=== PATIENT | male | born 1995 | race Caucasian/White ===

== ENCOUNTER 2018-11-02 11:24 | Emergency (ER) | payer SELFPAY ==
[~2018-11-02] VITALS: Ht 182.8 cm; Wt 81.6 kg
[~2018-11-02 11:24] MED LIST: NEXIUM40 MG PO; VITAMIN
[2018-11-02 12:34] LABS: BASO % 0.4 % (0.0-1.0); EOS # 0.8 10*3/uL (0.0-0.4); EOS % 10.9 % (1.0-4.0); HEMOGLOBIN 14.9 g/dl (14.0-18.0); LYMPH # 1.3 10*3/uL (1.3-4.4); LYMPH % 17.9 % (27.0-41.0); MEAN CELL VOLUME 87.1 fl (80.0-94.0); MEAN CORPUSCULAR HGB 29.5 pg (27.0-31.0); MEAN CORPUSCULAR HGB CONC 33.9 g/dl (33.0-37.0); MEAN PLATELET VOLUME 10.6 fl (9.6-12.3); MONO # 0.6 10*3/uL (0.1-1.0); MONO % 8.8 % (3.0-9.0); NEUT # 4.3 10*3/uL (2.3-7.9); NEUT % 61.7 % (47.0-73.0); PLATELET COUNT AUTOMATED 224 10*3/uL (130-400); RED BLOOD COUNT 5.05 10*6/uL (4.50-5.90); RED CELL DISTRI WIDTH 12.2 % (0-14.5)
[2018-11-02 12:49] LABS: ALBUMIN 1.5 gm/dl (3.1-4.5); ALKALINE PHOSPHATASE 60 U/L (45-117); BUN 5 mg/dl (7-24); CHLORIDE 108 mmol/L (98-107); CREATININE 0.81 mg/dL (0.70-1.30); POTASSIUM 4.1 mmol/L (3.5-5.1); SGOT/AST 22 IU/L (3-35); SGPT/ALT 25 U/L (12-78); SODIUM 144 mmol/L (136-145)
[2018-11-02] MEDS ORDERED: AUGMENTIN 875-875 MG PO (13:35)
[2018-11-02] MEDS ORDERED: IBU800 MG PO (13:35)
== END 2018-11-02 14:01 | disposition left against medical advice (07) ==
LOC: ED 11:24
PROVIDERS: Nurse Practitioner Family
DX: K12.2 Cellulitis and abscess of mouth (principal); Z79.899 Other long term (current) drug therapy

== ENCOUNTER 2018-12-05 13:43 | Emergency (ER) | payer SELFPAY ==
[~2018-12-05] VITALS: Ht 182.8 cm; Wt 83.9 kg
[~2018-12-05 13:43] MED LIST changes: +AUGMENTIN 875-875 MG PO; +IBU800 MG PO
== END 2018-12-05 15:39 | disposition home or self-care (01) ==
LOC: ED 13:43
DX: R60.0 Localized edema (principal); Z79.2 Long term (current) use of antibiotics; Z79.899 Other long term (current) drug therapy

== ENCOUNTER → 2019-03-29 | Outpatient (CLI) | payer SELFPAY ==
[~2019-03-29] MED LIST changes: +AMLODIPINE BESYL5 MG PO; +BENADRYL ALLERG25 M5 PO; +FUROSEMIDE40 MG PO; +K-TAB20 MEQ PO; +KLOR-CON M2020 ME1 PO; +LASIX80 MG PO; +LISINOPRIL20 MG PO; +NATURE'S BLEND F1 MG PO; +NORVASC5 MG PO; +PRINIVIL10 MG PO; +VITAMIN D32000 UNI1 PO; +Zestril,Prinivi40 MG PO
[2019-03-29 13:31] LABS: ALBUMIN 0.7 gm/dl (3.1-4.5); CREATININE 2.88 mg/dL (0.70-1.30); PHOSPHOROUS 3.4 mg/dL (2.5-4.9); POTASSIUM 4.7 mmol/L (3.5-5.1)
== END | disposition home or self-care (01) ==
LOC: LAB 12:45
PROVIDERS: Family Medicine
DX: R80.9 Proteinuria, unspecified (principal)

== ENCOUNTER → 2019-04-01 | Outpatient (CLI) | payer SELFPAY | END | disposition home or self-care (01) | LOC: LAB 20:45 | DX: R77.9 Abnormality of plasma protein, unspecified (principal) ==

== ENCOUNTER → 2019-04-05 | Outpatient (CLI) | payer SELFPAY | END | disposition home or self-care (01) | LOC: LAB 12:46 | PROVIDERS: Family Medicine | DX: N18.3 Chronic kidney disease, stage 3 (moderate) (principal) ==

== ENCOUNTER 2019-04-11 20:42 | Inpatient (IN) | payer SELFPAY ==
[~2019-04-11] VITALS: Ht 182.8 cm; Wt 98.0 kg
--- NOTE | ~2019-04-11 | WRIGHTHP ---
[place], [place] PATIENT HISTORY AND PHYSICAL EXAM NAME: [id number] UNIT #: [id number] ROOM: 518 DOCTOR: ESTRELLITA OHARA MD BIRTHDATE: [birth year] DOS: 04/11/2019 HISTORY OF PRESENT ILLNESS: The patient is 23 years old. The patient comes in with increasing shortness of breath. He says he is unable to even lie back flat because of increased abdominal distention and increased shortness of breath. He had seen his PCP recently and was told that he may have kidney disease from a recent strep infection. The patient states that he has strep infection about 6 months ago, it lasted for almost a month. He did not really take care of it, finally decided to go on antibiotics, but thinks that the medicine may not work. For the last 2-3 months, he has also noticed increasing leg swelling, abdominal swelling and increasing shortness of breath. Finally, he had a renal ultrasound and a 24-hour urine study as per the patient. We do not have the results of it and he was advised to see a bottom stop attacher. Appointment was made with Dr. Patel by his PCP, but yesterday his shortness of breath was significant, so he decided to come into the Emergency Room. He denies having any chest pains or palpitations, does not have any fever or chills, does not have any abdominal pain. He does not have any nausea or emesis. PAST MEDICAL HISTORY: Significant for: 1. Recent streptococcal pharyngitis. 2. Post-streptococcal glomerulonephritis. 3. Ascites. 4. Anasarca. MEDICATIONS: The patient is on just Prilosec. SOCIAL HISTORY: Nonsmoker, does not use any alcohol. Lives at home. He is a loja. He immigrated from [facility] at the age of 6. His parents are both healthy they do not have any medical problems. PHYSICAL EXAMINATION: GENERAL: He is awake and alert and oriented, pleasant, in mild respiratory distress, especially when he lies back flat. VITAL SIGNS: Graphic trend shows a pressure 148/90, pulse 119, respirations 20, temperature 98.5. LUNGS: Diminished breath sounds. HEART: Regular, tachycardic, heart rate in the 90s to low 100s. ABDOMEN: Obese, distended. Bowel sounds present. EXTREMITIES: About 2+ pitting edema all the way to the thighs. ASSESSMENT AND PLAN: 1. Anasarca with ascites. The patient was given albumin and Lasix combination and Dr. Camargo was consulted for possible paracentesis. A CT of the abdomen and pelvis will be ordered to see the extent of pleural effusions and may require thoracentesis soon. 2. Acute post-streptococcal glomerulonephritis with hematuria, hypertension. The patient is ordered an ASO level, 24-hour urine collection for protein and creatinine clearance and a consultation with Dr. Patel obtained. Renal ultrasound is also pending. 3. Protein-calorie malnutrition, severe. Encouraged to eat better high protein [place], [place] PATIENT HISTORY AND PHYSICAL EXAM NAME: [facility] [id number] UNIT #: [id number] ROOM: 8 DOCTOR: ESTRELLITA OHARA MD BIRTHDATE: [birth year] foods. 4. Benign hypertension, poorly controlled. Add hydralazine. Avoid nephrotoxic medications. ESTRELLITA OHARA MD CM:HISPHYS:PATIENT HISTORY AND PHYSICAL EXAMINATION [phone] ESTRELLITA OHARA MD 04/12/19 1453 interface
--- NOTE | ~2019-04-11 | PR ---
[place], [place] PROGRESS NOTE NAME: IFEANYI DUARTE UNIT #: [id number] ROOM: 518 DOCTOR: LORETO SHELTON MD,RONY BIRTHDATE: [birth year] DOS: 04/14/2019 PULMONARY PROGRESS NOTE SUBJECTIVE: The patient was seen and examined on 04/14/2019, has been noted without any acute distress. Shortness of breath occurs with exertion. Denies symptoms of chest pain, coughing or sputum expectoration or hemoptysis. Denies pain of the lower extremity, extremity edema has been improving. He was noted with periorbital edema, which were noted partially decreased. Remaining systems were reviewed. They were noted all negative. OBJECTIVE: GENERAL: The patient is comfortably sitting on the bed this morning of assessment. VITAL SIGNS: Recorded normal temperature, respiratory rate 18, heart rate 110, blood pressure 142/84. Pulse oxygen saturation on room air at rest was 99% saturation. HEENT: Examination shows head was atraumatic. Eyes nonicterus. Periorbital edema. CARDIOVASCULAR: S1, S2 audible. LUNGS: The patient noted decreased breath, lower portion of the lung. There were no crackles. ABDOMEN: Soft, nontender. Bowel sounds present. EXTREMITIES: No acute change. IMPRESSION: Stable respiratory status was noted at the present time for this patient with bilateral pleural fluid, nephrotic syndrome, anasarca picture with bilateral pleural fluid. PLAN OF TREATMENT: Ultrasound of the chest was performed today with the intention of thoracentesis. Fluid appeared to be noted as small and possibly moderate at this time, appeared to be decreased as compared with the assessment and comparison with CT scan of the chest. HIV testing was noted as negative. Hepatitis panel and the complement level as well as rheumatoid factor were all noted negative. IMPRESSION: 1. Acute changes, which is resolving with anasarca. 2. Status post paracentesis 2 days ago. 3. Resolving pleural fluid related to the current kidney problems. PLAN OF MANAGEMENT: Decision was made not to do thoracentesis at this time because of the fluid started resolving and gradually improving with conservative therapy. From the pulmonary standpoint, the patient could be discharged home. The assessment and management discussed with Dr. Dilma Telles on the phone. [place], [place] PROGRESS NOTE NAME: IFEANYI DUARTE UNIT #: [id number] ROOM: 518 DOCTOR: RONY COKER MD BIRTHDATE: [birth year] RONY DANGELO MD CM:PNTRANS [phone] RONY SHELTON MD 04/15/19 013 interface
--- NOTE | ~2019-04-11 | PR ---
[place], [place] PROGRESS NOTE NAME: IFEANYI DUARTE UNIT #: [id number] ROOM: 518 DOCTOR: ESTRELLITA OHARA MD BIRTHDATE: [birth year] DOS: SUBJECTIVE: The patient is resting. States that he had a little bit of nausea yesterday, was little anxious about his thoracentesis. OBJECTIVE: VITAL SIGNS: Graphic trend shows pressure 142/84, pulse of 110, respirations 18, temperature 98.2. LUNGS: Diminished breath sounds. No wheezes, rales or rhonchi heard. HEART: Regular. ABDOMEN: Obese, soft, nontender. Ascites is pretty much the same. It seems to be reaccumulating. EXTREMITIES: Legs without any edema this morning and anasarca seems to be improving. ASSESSMENT AND PLAN: 1. Nephrotic syndrome, most likely post-streptococcal. We do not know the exact diagnosis. ASO levels were normal. Rest of the autoimmune workup is also negative and the patient plans to undergo a renal biopsy soon. 2. Ascites with some reaccumulation noted. He already had 5 liters drained. 3. Acute kidney injury. Awaiting kidney functions today. 4. Bilateral pleural effusions for thoracentesis today, and after that is done, the patient should be able to go home. Follow up with Dr. Domingo as an outpatient. Total protein is 14 grams, is nephrotic range proteinuria. ESTRELLITA OHARA MD CM:PNTRANS 2 35 ESTRELLITA OHARA MD 04/14/191934 interface
--- NOTE | ~2019-04-11 | DS ---
[place], [place] DISCHARGE SUMMARY NAME: IFEANYI DUARTE UNIT #: [id number] ROOM: 518 DOCTOR: ESTRELLITA OHARA MD BIRTHDATE: [birth year] DOS: 04/14/2019 DIAGNOSES: 1. Acute kidney injury. 2. Nephrotic syndrome with significant proteinuria. 3. Benign hypertension. 4. Bilateral pleural effusions, for thoracentesis. 5. Anasarca with ascites, status post paracentesis. 6. History of streptococcal pharyngitis. 7. History of street drug abuse in the past. 8. Folic acid deficiency and anemia of chronic disease. MEDICATIONS: He is on lisinopril 20 mg daily. Folic acid 1 mg daily. HOSPITAL COURSE: The patient is 23 years old, patient of Dr. Donohue, comes in with complaints of diffuse swelling, increased abdominal distention and shortness of breath. Please refer to H and P for details. After admission, he was noted to have ascites. Dr. Camargo was consulted and was drained, about 5 liters was removed. He had bilateral pleural effusions which Dr. Freire was consulted, thoracentesis to be performed. He had a 24-hour urine collection which showed significant proteinuria, elevated blood pressures with underlying nephrotic syndrome. Dr. Patel was consulted. The patient was also started on albumin and Lasix combination and was eventually started on SHARLA inhibitors by Nephrology. Nephrology feels that the patient would benefit from renal biopsy as an outpatient. He has history of street drug abuse. So far, all the autoimmune studies and the ASO levels have come back normal. The patient is relatively stable. His kidney function this morning is still pending. Yesterday's labs showed a BUN of 17, creatinine 1.81, GFR 57. Sodium 144, potassium 3.3, chloride 115. As hypokalemia was noted, supplementation was given. The patient to follow up with Dr. Donohue as an outpatient as well as Dr. Patel. He needs to be scheduled for renal biopsy as an outpatient. [place], [place] DISCHARGE SUMMARY NAME: IFEANYI DUARTE UNIT #: [id number] ROOM: 518 DOCTOR: ESTRELLITA OHARA MD BIRTHDATE: [birth year] ESTRELLITA OHARA MD CM:TONIE [id number] ESTRELLITA OHARA MD 04/14/19 1558 interface
--- NOTE | ~2019-04-11 | EKG ---
[place], [place] ELECTROCARDIOGRAM REPORT NAME: IFEANYI DUARTE UNIT #: [id number] ROOM: 518 DOCTOR: EPIPHANY DRAFT REPORT BIRTHDATE: [birth year] [facility] Test Date: 2019-04-11 Test Time: 21:55:41 Pat Name: IFEANYI DUARTE Department: Room: 518 Gender: M Fiber Designer: Brice Ross : 1995 Requested By: CLAYTON SHIRLEY PA-C Order Number: [id number] Reading MD: Johnnie Whitley MD Measurements Intervals [place] Rate: 101 P: -18 TX: 104 QRS: 2 QRSD: 89 T: 29 QT: 364 QTc: 472 Interpretive Statements Sinus tachycardia Borderline prolonged QT interval Electronically Signed On 04-12-2019 17:31:30 PDT by Johnnie Whitley MD CM:EKGRPT:ELECTROCARDIOGRAM REPORT 1731 CLAYTON SHIRLEY PA-C EPIPHANY DRAFT REPORT CLAYTON SHIRLEY PA-C
--- NOTE | ~2019-04-11 | CON ---
[place], [place] REPORT OF CONSULTATION NAME: IFEANYI DUARTE [facility] #: [id number] UNIT #: [id number] ROOM: 518 DOCTOR: RONY COKER MD BIRTHDATE: [birth year] DOS: 04/13/2019 PULMONARY CONSULTATION, EVALUATION AND MANAGEMENT CONSULTATION REQUESTED BY: Dr. Dilma Telles. REASON FOR CONSULTATION: For the assessment of pleural effusion and possible thoracentesis. HISTORY OF PRESENT ILLNESS: A 23-year-old male patient who has been admitted under the care of Dr. Dilma Telles on 04/11/2019. The patient has been noted with glomerulonephritis and acute nephrotic syndrome with pleural fluid bilaterally noted as well as ascites. The patient has been noted with recent streptococcal infection. He has been admitted to the hospital with progressive symptoms of shortness of breath reported gradually occurring for the past few weeks, but the symptoms noted significantly worsened as well. He has not been reported with symptoms of chest pain. The patient has been coughing. He has not reported any symptoms of chest pain or any acute hemoptysis. REVIEW OF SYSTEMS: CONSTITUTIONAL SYMPTOMS: Fatigue and tiredness noted without any symptoms of fever or chills. EYES: Denies burning, redness, or tenderness. EARS, NOSE, THROAT SYMPTOMS: No sore throat, hoarseness, otalgia, postnasal drainage or epistaxis. CARDIOVASCULAR: Angina pain noted. Progressive edema of the lower extremity and upper extremity, which has been improving. GASTROINTESTINAL SYMPTOMS: Denies dysphagia, nausea, vomiting, diarrhea, abdominal pain, hematemesis, melena, increased abdominal girth were identified with ascites. There was no pain reported. There were no symptoms of hematemesis or melena. GENITOURINARY SYMPTOMS: No dysuria, suprapubic pain, or hematuria at the present time. MUSCULOSKELETAL: No acute joint pain, redness, or tenderness. SKIN: Denies lesions or rashes. CENTRAL NERVOUS SYSTEM: Denies any dizziness, headache, or diplopia. Remaining systems were reviewed. They were noted all negative. PAST MEDICAL HISTORY: Noted: 1. Recent streptococcal pharyngitis and post-streptococcal glomerulonephritis. 2. Ascites and anasarca history as well recently stated. SOCIAL HISTORY: No history of tobacco, alcohol or illicit drug use. Recently immigrated from [facility]. SURGICAL HISTORY: Not reported. HOME MEDICATIONS: Listed as Prilosec. [place], [place] REPORT OF CONSULTATION NAME: IFEANYI DUARTE UNIT #: [id number] ROOM: 518 DOCTOR: LORETO SHELTON MD,RONY BIRTHDATE: [birth year] FAMILY HISTORY: Noted noncontributory. PHYSICAL EXAMINATION: GENERAL: This is a 23-year-old who has been currently sitting on side of bed without any distress. Height of 6 feet, weight of 225 pounds, BMI 30.5. VITAL SIGNS: For the patient recorded as normal temperature, respiratory rate 16-18, heart rate of 108-119, blood pressure 155-96 to 150-106. Pulse ox saturation on room air was 99% saturation. Intake 1540, output 1000 mL. HEENT: Noted with periorbital edema. Head was atraumatic. Eyes nonicterus. NECK: Supple. CARDIOVASCULAR: S1, S2 audible. LUNGS: Noted with absent breath sounds noted in the lower lung bilaterally. ABDOMEN: Noted soft with moderate distention. EXTREMITIES: Noted with edema of the lower extremities and upper extremities. MUSCULOSKELETAL: Noted without any acute deformities. VISIBLE SKIN: No lesions or rashes. CENTRAL NERVOUS SYSTEM: No focal neurologic deficit. LABORATORY DATA: To assess for this consultation. CBC done on 04/11/2019 on admission, WBC count normal, hemoglobin 8.9, platelet count normal. The PT/INR noted at 0.9. CMP on 04/11/2019, BUN 19 and creatinine 2.45. LFTs grossly normal. CBC that was done on 04/13/2019, WBC count 8.9, hemoglobin 8.4, and platelet count was normal. The BMP that was done on 04/13/2019, BUN 17, creatinine 1.81. Potassium 3.3. Analysis of the peritoneal fluid noted as WBC is only 36 and 66% lymphocytes. RADIOLOGY DATA: Reviewed. The chest x-ray that was done previously on 12/05/2018, was essentially noted as normal chest x-ray without any acute abnormality. The chest x-ray that was done on 04/11/2019 noted pleural fluid bilateral view, on the lateral image. The patient has a CT scan of the chest, abdomen and pelvis completed as well yesterday that was reviewed, shows moderate-sized bilateral pleural fluid noted, area of compression atelectasis, and ascites was also visible. IMPRESSION: 1. The patient will be currently admitted to the hospital noted with finding of anasarca. The patient was taken acute nephrotic syndrome with acute kidney injury as well with ascites, status post paracentesis. Removal of 5 liters of fluid yesterday successfully. 2. Bilateral pleural third spacing. 3. ___ fluid noted best on the CT scan of the chest images, then with the ultrasound. 4. Mild hyperkalemia was also noted as well. PLAN OF MANAGEMENT: The patient has been assessed and recommended thoracentesis will be done tomorrow morning with ultrasound assessment. In the meantime, the patient carefully diuresed and the management of anasarca and follow the recommendation of Nephrology Service. Office management. Usual care, other therapy, plan of management, care plan of treatment and other therapy to be continued as well. Additional treatment changes will be recommended and made [place], [place] REPORT OF CONSULTATION NAME: IFEANYI DUARTE UNIT #: [id number] ROOM: 518 DOCTOR: RONY COKER MD BIRTHDATE: [birth year] for this patient based on progression of the illness. The patient was not noted any acute hypoxia at the present time. Assessment and management discussed with Dr. Dilma Telles. RONY DANGELO MD CM:CONSTR:REPORT OF CONSULTATION 1320 04/14/19 0210 interface
--- NOTE | ~2019-04-11 | PR ---
[place], [place] PROGRESS NOTE NAME: IFEANYI DUARTE UNIT #: [id number] ROOM: 518 DOCTOR: ESTRELLITA OHARA MD BIRTHDATE: [birth year] DOS: SUBJECTIVE: The patient is doing much better after the paracentesis. He felt a lot better. Shortness of breath improving. Anasarca still persistent. OBJECTIVE: VITAL SIGNS: Pressure is 155/96, pulse of 119, respirations 18, temperature 98.2. LUNGS: Diminished breath sounds. HEART: Tachycardic about 100 per minute. ABDOMEN: Soft. EXTREMITIES: Without any edema. IMAGING STUDIES: Ultrasound of the kidneys did not show any major problems. LABORATORY DATA: White cell count is 8.9, hemoglobin 8.4, hematocrit 25.0. BMP: Glucose 86, BUN 17, creatinine 1.81, GFR 47, sodium 144, potassium 3.3, chloride 115, bicarbonate 22. Echocardiogram was fairly unremarkable, which showed normal ejection fraction. CT of the chest and abdomen showed large pleural effusions, bilateral with ascites. ASSESSMENT AND PLAN: 1. Acute post-streptococcal glomerulonephritis. Awaiting ASO levels. Renal following. 2. Benign hypertension from acute nephritis. The patient is placed on increased dose of hydralazine, added Norvasc. 3. Ascites, status post drainage. Abdomen looks less distended. 4. Anasarca with bilateral pleural effusions. Continue albumin and Lasix. We will ask Dr. Freire for thoracentesis. Already discussed with him. 5. Hypokalemia. Supplementation will be given. ESTRELLITA OHARA MD CM:PNTRANS 3 30 ESTRELLITA OHARA MD 04/13/192128 interface
[~2019-04-11 20:42] MED LIST changes: -AMLODIPINE BESYL5 MG PO; -BENADRYL ALLERG25 M5 PO; -FUROSEMIDE40 MG PO; -K-TAB20 MEQ PO; -KLOR-CON M2020 ME1 PO; -LASIX80 MG PO; -LISINOPRIL20 MG PO; -NATURE'S BLEND F1 MG PO; -NORVASC5 MG PO; -PRINIVIL10 MG PO; -VITAMIN D32000 UNI1 PO; -Zestril,Prinivi40 MG PO
[2019-04-11 20:43] VITALS: BP 161/113
[2019-04-11 22:03] LABS: BASO % 0.2 % (0.0-1.0); EOS % 10.4 % (1.0-4.0); HEMATOCRIT 27.6 % (42.0-52.0); HEMOGLOBIN 8.9 g/dl (14.0-18.0); LYMPH # 3.3 10*3/uL (1.3-4.4); LYMPH % 34.7 % (27.0-41.0); MEAN CELL VOLUME 88.5 fl (80.0-94.0); MEAN CORPUSCULAR HGB 28.5 pg (27.0-31.0); MEAN CORPUSCULAR HGB CONC 32.2 g/dl (33.0-37.0); MEAN PLATELET VOLUME 10.2 fl (9.6-12.3); MONO # 0.4 10*3/uL (0.1-1.0); MONO % 4.4 % (3.0-9.0); NEUT # 4.8 10*3/uL (2.3-7.9); PLATELET COUNT AUTOMATED 309 10*3/uL (130-400); RED BLOOD COUNT 3.12 10*6/uL (4.50-5.90); RED CELL DISTRI WIDTH 12.6 % (0-14.5); WHITE BLOOD COUNT 9.6 10*3/uL (4.8-10.8)
[2019-04-11 22:12] LABS: INTERNATIONAL NORM RATIO 0.9 (2.0-3.5)
[2019-04-11 22:20] LABS: ALBUMIN 0.6 gm/dl (3.1-4.5); ALKALINE PHOSPHATASE 57 U/L (45-117); BUN 19 mg/dl (7-24); CHLORIDE 115 mmol/L (98-107); CREATININE 2.45 mg/dL (0.70-1.30); POTASSIUM 3.5 mmol/L (3.5-5.1); SGOT/AST 23 IU/L (3-35); SGPT/ALT 8 U/L (12-78); SODIUM 144 mmol/L (136-145); TOTAL PROTEIN 4.4 gm/dL (6.4-8.2)
[2019-04-11 22:22] LABS: TROPONIN I < 0.015 ng/ml (<0.045)
[2019-04-12 00:25] VITALS: BP 164/96
--- NOTE | 2019-04-12 00:25 | NUR ---
A 23, admitted to 5E, under the services of ESTRELLITA Anaya MD with a diagnosis of PLEURAL EFFUSION, ANASARCA ASSOCIATED W/ DISORDER. Chief complaint is MULTIPLE COMPLAINTS. Patient arrived via stretcher from ER. Monitor applied. Initial assessment completed. Vital signs taken and recorded. ESTRELLITA ANAYA MD notified of admission to the unit. Orders received. See assessment for past medical history, medications and allergies. Patient and/or family oriented to unit. [address] visitation policy reviewed. Clothing/patient valuable form completed. PT CAME TO FLOOR WITH NO IV. WILL ASSESS AND PLACE ONE. PT'S LUNGS ARE CLEAR BUT DIMINISHED IN THE BASES. PT'S ABDOMEN IS DISTENDED. PT FEELS SOB AND PRESSURE WHEN SITTING UP. PT HAS NO OPEN WOUNDS. PT IS ALERT AND ORIENTED X3. DANE DUGGAN
[2019-04-12] MEDS ORDERED: BENADRYL ALLERG25 M5 PO (00:36)
--- NOTE | 2019-04-12 00:50 | NUR ---
ATTEMPTED TO CALL DR. OHARA FOR ADMISSION ORDERS. PHONE WENT STRAIGHT TO VOICEMAIL. WILL RE-TRY AGAIN SOON.
[2019-04-12 05:58] VITALS: BP 156/98
--- NOTE | 2019-04-12 06:39 | NUR ---
NEPHROLOGY CONSULT COMPLETED.
[2019-04-12 06:55] LABS: CREATININE 2.29 mg/dL (0.70-1.30); POTASSIUM 3.3 mmol/L (3.5-5.1)
[2019-04-12 08:00] VITALS: BP 148/90
[2019-04-12 12:00] VITALS: BP 157/96
[2019-04-12 12:51] LABS: BILIRUBIN NEGATIVE (NEGATIVE); BLOOD 1+ (NEGATIVE); CLARITY SL CLOUDY (CLEAR); COLOR YELLOW (YELLOW); GLUCOSE 1+ (NEGATIVE); KETONE NEGATIVE (NEGATIVE); LEUKO ESTERASE NEGATIVE (NEGATIVE); NITRITE NEGATIVE (NEGATIVE); SPECIFIC GRAVITY 1.015 (1.005-1.030); UROBILINOGEN 0.2 E.U./dl (0.2-1.0)
[2019-04-12 13:14] LABS: BODY FLUID WBC 36 /uL
--- NOTE | 2019-04-12 13:32 | NUR ---
Interior Design Director in to talk to patient. Patient states lives at HOME with FATHER. There are FEW steps in the home. Physician: ABDON Pharmacy: [facility] Home health services: NONE Patient's level of ADLs: INDEPENDENT Patient has working utilities: YES DME: NONE Follow-up physician's appointment after d/c: WILL BE MADE BY HOSPITALIST NURSE DIRECTOR ON DISCHARGE Does patient want to access PORTAL?: NO Discharge plan PT LIVES AT HOME WITH FATHER AND STATES HE IS INDEPENDENT IN HIS CARE. DENIES ANY NEEDS ON DISCHARGE. STATES HE WILL RETURN HOME WITH FATHER.. WILL CONTINUE TO FOLLOW. WILL HAVE A RIDE HOME ON DISCHARGE. KILLIAN BASSETT
[2019-04-12 13:36] LABS: BACTERIA 1+; WBC 21-30 wbc/hpf (0-5)
[2019-04-12 13:56] LABS: BF LYMPHOCYTES 66 %; BF MACROPHAGES 31 %; BF MONOCYTES 1 %; BF NEUTROPHILS 2 %
[2019-04-12 16:00] VITALS: BP 119/53; BP 159/109
[2019-04-12 20:00] VITALS: BP 162/112
--- NOTE | 2019-04-12 20:06 | NUR ---
TYLENOL GIVEN PER ORDER FOR HEADACHE RATED "4-5" SEE MAR.
--- NOTE | 2019-04-12 20:20 | NUR ---
CALLED DR. MARSHALL AND NOTIFIED HIM OF ELEVATED BLOOD PRESSURE. ORDER RECEIVED TO GIVEN APRESOLINE EARLY.
--- NOTE | 2019-04-12 20:30 | NUR ---
APRESOLINE GIVEN PER ORDER FOR HYPERTENSION.
--- NOTE | 2019-04-12 21:00 | NUR ---
TYLENOL SLIGHTLY EFFECTIVE FOR H/A PER PT. AT THIS TIME.
[2019-04-13] VITALS: BP 178/103
--- NOTE | 2019-04-13 01:02 | NUR ---
CALLED DR. MARSHALL AND NOTIFIED HIM OF ELEVATED BP STILL. ORDER RECEIVED FOR CARDIOLOGY CONSULT TO MANAGE BP.
--- NOTE | 2019-04-13 01:11 | NUR ---
CALLED DR. ADDISON ANSWERING SERVICE FOR CONSULT AND MANAGMENT OF HYPERTENSION.
--- NOTE | 2019-04-13 01:57 | NUR ---
24 HR chart check completed.
--- NOTE | 2019-04-13 02:00 | NUR ---
sleeping. no acute distress noted.
[2019-04-13 05:00] VITALS: BP 153/106
[2019-04-13 06:39] LABS: BASO % 0.2 % (0.0-1.0); EOS # 1.2 10*3/uL (0.0-0.4); EOS % 13.9 % (1.0-4.0); HEMOGLOBIN 8.4 g/dl (14.0-18.0); LYMPH # 2.9 10*3/uL (1.3-4.4); LYMPH % 32.3 % (27.0-41.0); MEAN CELL VOLUME 86.5 fl (80.0-94.0); MEAN CORPUSCULAR HGB 29.1 pg (27.0-31.0); MEAN CORPUSCULAR HGB CONC 33.6 g/dl (33.0-37.0); MEAN PLATELET VOLUME 10.5 fl (9.6-12.3); MONO # 0.5 10*3/uL (0.1-1.0); NEUT # 4.2 10*3/uL (2.3-7.9); NEUT % 47.1 % (47.0-73.0); PLATELET COUNT AUTOMATED 245 10*3/uL (130-400); RED BLOOD COUNT 2.89 10*6/uL (4.50-5.90); RED CELL DISTRI WIDTH 12.5 % (0-14.5); WHITE BLOOD COUNT 8.9 10*3/uL (4.8-10.8)
[2019-04-13 06:41] LABS: CREATININE 1.81 mg/dL (0.70-1.30); POTASSIUM 3.3 mmol/L (3.5-5.1)
[2019-04-13 08:00] VITALS: BP 155/96
[2019-04-13 08:10] LABS: COMPLEMENT C4 001834 26 mg/dL (14-44)
[2019-04-13 12:08] VITALS: BP 152/92
--- NOTE | 2019-04-13 13:03 | NUR ---
PT CONTINUES TO DENY NEEDS ON DISCHARGE. WILL CONTINUE TO FOLLOW.
[2019-04-13 16:00] VITALS: BP 149/99
[2019-04-13 16:06] LABS: ATYPICAL PANCA <1:20 titer (Neg:<1:20); CYTOPLASMIC (C-ANCA) <1:20 titer (Neg:<1:20)
[2019-04-13 20:00] VITALS: BP 150/103
[2019-04-14] VITALS: BP 140/82
[2019-04-14 07:09] LABS: HEPATITIS B SURFACE AG Negative (Negative); HEPATITIS C VIRUS ANTIBODY <0.1 s/co (0.0-0.9); TOTAL PROTEIN, SERUM 3.6 g/dL (6.0-8.5)
[2019-04-14 08:00] VITALS: BP 142/84
[2019-04-14 08:05] LABS: RHEUMATOID ARTHRITIS FACTOR <10.0 IU/mL (0.0-13.9)
[2019-04-14] MEDS ORDERED: LISINOPRIL20 MG PO (08:55)
[2019-04-14] MEDS ORDERED: NATURE'S BLEND F1 MG PO (08:55)
[2019-04-14 09:09] LABS: CREATININE 2.12 mg/dL (0.70-1.30); POTASSIUM 3.5 mmol/L (3.5-5.1)
--- NOTE | 2019-04-14 09:57 | NUR ---
DR DANGELO IN TO SEE PT. ULTRASOUND DONE BY HIM AT BEDSIDE AND DUE TO DECREASED PLEURAL FLUID THORECENTESIS DOES NOT HAVE TO BE DONE AT THIS TIME. PT AWARE.
--- NOTE | 2019-04-14 11:30 | NUR ---
[facility] L [facility] regarding self pay status and coming back to the hospital for an outpatient biopsy. Maria L states patient would need to complete another form as the form he completed inpatient works for that day not for future days. Maria L's name and number given to patient. Dr. Maxwell notified.
[2019-04-14 12:00] VITALS: BP 140/80
--- NOTE | 2019-04-14 12:45 | NUR ---
ALF NI NAME AND NUMBER GIVEN TO PT WITH INSTRUCTIONS TO CALL HER TO SIGN PAPERS WHEN HE RETURNS TO HOSPITAL ON WEDNESDAY FOR RENAL BIOPSY. PT VOICES UNDERSTANDING.
--- NOTE | 2019-04-14 13:50 | NUR ---
Discharge instructions reviewed with patient/family. Patient receptive and verbalizes understanding. Follow-up care arranged. Written instructions given to patient/family. ELIOT HAMILTON
--- NOTE | 2019-04-14 13:52 | NUR ---
PT DISCHARGED AT THIS TIME WITH FATHER TO HOME.
[2019-04-14 16:06] LABS: A/G RATIO 0.7 (0.7-1.7); ALBUMIN 1.5 g/dL (2.9-4.4); ALPHA-1-GLOBULIN 0.2 g/dL (0.0-0.4); BETA GLOBULIN 0.6 g/dL (0.7-1.3); GAMMA GLOBULIN 0.3 g/dL (0.4-1.8); GLOBULIN, TOTAL 2.1 g/dL (2.2-3.9); M-SPIKE Not Observed g/dL (Not Observed)
== END 2019-04-14 13:52 | disposition home or self-care (01) | DRG 698 ==
LOC: ED 20:42 → 5E 23:23 → EDHOLD 23:23 → 5E 23:52
PROVIDERS: Internal Medicine; Physician Assistant; ADMIT Internal Medicine
PROC: 0W9G3ZZ Drainage of Peritoneal Cavity, Percutaneous Approach (ICD-10-PCS; principal; 2019-04-12)
DX: N00.9 Acute nephritic syndrome with unspecified morphologic changes (principal); E43 Unspecified severe protein-calorie malnutrition; R18.8 Other ascites; J90 Pleural effusion, not elsewhere classified; N17.9 Acute kidney failure, unspecified; E53.8 Deficiency of other specified B group vitamins; I10 Essential (primary) hypertension; D63.8 Anemia in other chronic diseases classified elsewhere; E87.6 Hypokalemia; R31.29 Other microscopic hematuria; R73.9 Hyperglycemia, unspecified; R82.71 Bacteriuria; R81 Glycosuria; Z83.3 Family history of diabetes mellitus; Z79.899 Other long term (current) drug therapy; Z68.30 Body mass index [BMI] 30.0-30.9, adult

== ENCOUNTER 2019-04-25 16:11 | Inpatient (IN) | payer SELFPAY ==
[~2019-04-25] VITALS: Ht 182.9 cm; Wt 97.7 kg
--- NOTE | ~2019-04-25 | PR ---
[place], [place] PROGRESS NOTE NAME: [facility] [id number] UNIT #: [id number] ROOM: 504 DOCTOR: DIDI MARSHALL MD BIRTHDATE: [birth year] DOS: 04/27/2019 SUBJECTIVE: The patient is feeling about the same, quite weak with leg and pedal edema and abdominal distention with striae. IMPRESSION: 1. The patient with nephrotic syndrome with hypoproteinemia and anasarca with ascites and peripheral volume overload. 2. Acute kidney failure and nephrotic syndrome. The patient is being followed by Dr. Patel who has arranged a kidney biopsy for him. 3. Hypoproteinemia from nephrotic syndrome and peripheral volume overload, being managed by diuresis. 4. Benign essential hypertension. The patient treated with lisinopril and also for nephrotic syndrome. 5. Large ascites, which has been drained before. DIDI MARSHALL MD CM:PNTRANS [id number] DIDI MARSHALL MD 04/27/19 1229 interface
--- NOTE | ~2019-04-25 | PR ---
[place], [place] PROGRESS NOTE [id number] #: [id number] ROOM: 504 DOCTOR: DIDI MARSHALL MD BIRTHDATE: [birth year] DOS: 04/28/2019 SUBJECTIVE: The patient complains of some pain at the renal biopsy site. OBJECTIVE: GENERAL APPEARANCE: The patient is alert and oriented x 3, in no visible distress. VITAL SIGNS: Blood pressure 154/108, heart rate of 86 beats per minute, breathing 20 times per minute, temperature 98 degrees Fahrenheit. HEENT AND NECK: Exam within normal limits. CARDIOVASCULAR SYSTEM: Heart rate is regular in rate and rhythm. S1 and S2 normally audible. LUNGS: Clear to auscultation. ABDOMEN: Abdominal distention from ascites. EXTREMITIES: Without significant cyanosis or edema. IMPRESSION: 1. The patient with nephrotic syndrome, status post renal biopsy. Dr. Patel is following him. 2. The patient with acute kidney failure. Creatinine 2.79, this is stable. 3. Hypokalemia, to be treated with extra potassium supplements. 4. Severe hypoproteinemia from nephrotic syndrome causing fluid volume overload and his large ascites. Dr. Patel is managing. 5. Benign essential hypertension, treated and controlled. 6. Large ascites, which has been drained before the patient considering paracentesis. Dr. Patel to be informed. DIDI MARSHALL MD CM:PNTRANS [phone] DIDI MARSHALL MD 04/28/19 1318 interface
--- NOTE | ~2019-04-25 | DS ---
[place], [place] DISCHARGE SUMMARY NAME: IFEANYI DUARTE UNIT #: [id number] ROOM: 504 DOCTOR: DIDI MARSHALL MD BIRTHDATE: [birth year] DOS: 05/01/2019 DISCHARGE DIAGNOSES: 1. Acute kidney failure. 2. Acute nephrotic syndrome, status post kidney biopsy. 3. Peripheral volume overload and ascites related to nephrotic syndrome. 4. Severe protein-calorie malnutrition related to nephrotic syndrome. 5. Large ascites, status post paracentesis. 6. Hypokalemia from diuresis. The patient on potassium supplements. 7. Benign essential hypertension. 8. Anasarca related to hypoproteinemia. HOSPITAL COURSE: 1. The patient presented to [facility] and was admitted on request of Dr. Patel, his major league baseball player for kidney biopsy. After admission, he has been diuresed, potassium supplements added for hypokalemia and the patient underwent kidney biopsy. 2. Acute nephrotic syndrome. The patient is status post kidney biopsy, remains on diuresis. 3. Severe hypoproteinemia and nephrotic syndrome. Kidney function is being monitored by major league baseball player, Dr. Patel. 4. Benign essential hypertension, treated and controlled with lisinopril and Norvasc. 5. Large ascites related to hypoproteinemia. Patient is status post paracentesis. 6. Acute kidney failure. BUN and creatinine 23 and 2.8, being followed by Nephrology. LABORATORY DATA: The patient is status post paracentesis. Hemoglobin 8. BUN and creatinine 24 and 2.8. Potassium level of 3.4. The patient is given extra potassium and potassium dosage increased. DISCHARGE MANAGEMENT: Potassium chloride 40 mEq daily, furosemide 80 mg b.i.d., amlodipine 5 mg daily, lisinopril 40 mg a day, vitamin D 2000 units daily, folic acid 1 mg daily, Tylenol p.r.n. for pain. Follow up with Dr. Patel within a week and with PCP. [place], [place] DISCHARGE SUMMARY NAME: IFEANYI DUARTE UNIT #: [id number] ROOM: 504 DOCTOR: DIDI MARSHALL MD BIRTHDATE: [birth year] DIDI MARSHALL MD CM:TONIE [phone] DIDI MARSHALL MD 05/01/19 1606 interface
--- NOTE | ~2019-04-25 | PR ---
[place], [place] PROGRESS NOTE NAME: IFEANYI DUARTE UNIT #: [id number] ROOM: 504 DOCTOR: ESTRELLITA OHARA MD BIRTHDATE: [birth year] DOS: SUBJECTIVE: The patient is complaining of increasing abdominal distention and would like to have paracentesis done. OBJECTIVE: VITAL SIGNS: Graphic trend shows blood pressure 142/100, pulse of 89, respirations 20, temperature 98.3. LUNGS: Diminished breath sounds. HEART: Regular. ABDOMEN: Obese, distended with evidence of significant anasarca. LABORATORY DATA: This morning show BMP: Glucose 90, BUN 24, creatinine 2.72, sodium 143, potassium 3.4, chloride 116, bicarbonate 22, calcium 7.1, magnesium 1.5. White cell count is 8.2, hemoglobin 7.4. Vitamin D 11.0. CT of the kidney, biopsy performed by Dr. Camargo on April 28. ASSESSMENT AND PLAN: 1. Nephrotic syndrome. Awaiting pathology report from kidney biopsy. 2. Hypokalemia, supplemented. 3. Paracentesis with anasarca, on p.o. Lasix. The patient will have Interventional Radiology do paracentesis on Wednesday and then can go home. 4. Severe protein-calorie malnutrition. ESTRELLITA OHARA MD CM:PNTRANS [phone] ESTRELLITA OHARA MD 04/29/1911 interface
--- NOTE | ~2019-04-25 | WRIGHTHP ---
[place], [place] PATIENT HISTORY AND PHYSICAL EXAM NAME: IFEANYI DUARTE [facility] #: [id number] UNIT #: [id number] ROOM: 504 DOCTOR: DIDI MARSHALL MD BIRTHDATE: [birth year] DOS: 04/25/2019 HISTORY OF PRESENT ILLNESS: The patient is a 23-year-old gentleman with a past medical history of: 1. Nephrotic syndrome with significant proteinuria. 2. Benign essential hypertension. 3. Large ascites and bilateral pleural effusions, status post thoracentesis and paracentesis. 4. Anasarca with ascites and hypoproteinemia. 5. History of Streptococcus pharyngitis. 6. History of street drug abuse in the past. 7. Folic acid deficiency anemia and anemia of chronic disease. The patient was admitted on request of Dr. Patel, his security support analyst for a kidney biopsy. The patient has had progressive kidney failure and nephrotic syndrome for about 2 months now according to the patient. No chest pain, no shortness of breath no GI or urinary symptoms. Otherwise generalized weakness. REVIEW OF SYSTEMS: RESPIRATORY: The patient had some increasing shortness of breath recently, but feeling better now. GASTROINTESTINAL: No nausea, vomiting, diarrhea, constipation. CARDIOVASCULAR: No chest pains or palpitations. FAMILY HISTORY: Noncontributory. ALLERGIES: No known drug allergies. MEDICATIONS: The patient is on Lasix, lisinopril and folic acid. PHYSICAL EXAMINATION: GENERAL: Alert and oriented x 3, in no visible distress, generalized weakness. HEENT AND NECK: Extraocular movements are intact. Sclerae are anicteric. Oral mucosa is moist and clean. No obvious facial weakness. Neck is supple without any lymphadenopathy. No thyromegaly. No JVD. No carotid arterial bruits. LUNGS: Clear to auscultation. No wheezing. No rhonchi. CARDIOVASCULAR SYSTEM: Heart rate is regular in rate and rhythm. S1 and S2 normally audible. No significant murmur or any other abnormal cardiac sounds. ABDOMEN: Some abdominal distention and fluid thrill on abdominal palpation. Otherwise no obvious organomegaly. EXTREMITIES: With 1-2+ leg and pedal edema. CENTRAL NERVOUS SYSTEM: Alert and oriented x 3. Cranial nerves II-XII are intact. Speech is normal. The patient is able to move all extremities. Normal muscle strength. Deep tendon reflexes are equal on both sides. Plantars were downgoing. LABORATORY DATA: INR normal at 0.9. Creatinine of 2.1, elevated. Otherwise normal serum electrolytes. Albumin low at 0.6. Hemoglobin 7.7. IMPRESSION AND PLAN: [place], [place] PATIENT HISTORY AND PHYSICAL EXAM NAME: IFEANYI DUARTE UNIT #: [id number] ROOM: [facility] DOCTOR: DIDI MARSHALL MD BIRTHDATE: [birth year] 1. The patient with nephrotic syndrome and acute kidney failure, being worked up with a renal biopsy by Dr. Patel, his security support analyst. 2. Large ascites, pleural effusions from severe hypoproteinemia from nephrotic syndrome. 3. Severe hypoproteinemia from nephrotic syndrome, being managed with diuresis. Nephrology is following. 4. The patient remains on lisinopril, which has been continued. DIDI MARSHALL MD CM:HISPHYS:PATIENT HISTORY AND PHYSICAL EXAMINATION [id number] DIDI MARSHALL MD 04/26/19 1147 interface
--- NOTE | ~2019-04-25 | PR ---
[place], [place] PROGRESS NOTE NAME: IFEANYI DUARTE UNIT #: [id number] ROOM: 504 DOCTOR: WALDO ARREOLA DO BIRTHDATE: [birth year] DOS: 04/30/2019 SUBJECTIVE: The patient offers no complaints. He remains concerned that he remains swollen, concerned about his abdominal distention. He notes that he is feeling weak. Denies any orthopnea or PND. Denies any dyspnea. States he is voiding well and at baseline. PHYSICAL EXAMINATION: VITAL SIGNS: Blood pressure is 141/96, pulse 99, respirations 16, temperature 98.3 degrees Fahrenheit. GENERAL APPEARANCE: A well-appearing male, awake, alert and oriented x 3, in no apparent distress. HEAD AND NECK: Conjunctivae are pink and moist. NECK: JVD appreciated. LUNGS: Clear to auscultation and percussion. CARDIOVASCULAR: Regular without S3, rub and murmurs not appreciated. ABDOMEN: Soft, positive bowel sounds x 4 without CVA tenderness noted. EXTREMITIES: No clubbing, cyanosis. Anasarca is noted. LABORATORY DATA: From today, none. ASSESSMENT AND PLAN: 1. Acute kidney injury occurring in the setting of proteinuria. No followup labs are available from today. A renal biopsy has been completed and the report is thus far pending prior to his anasarca secondary to his nephrotic syndrome. He is being diuresed. 2. Hypertension, currently with the above medications, BP medications have been adjusted. RECOMMENDATIONS: Agree with current management. Follow intake and output as well as renal function and electrolytes closely, await results of pending studies. Thank you for allowing us to participate in the care of the patient. [place], [place] PROGRESS NOTE NAME: IFEANYI DUARTE UNIT #: [id number] ROOM: 504 DOCTOR: WALDO ARREOLA DO BIRTHDATE: [birth year] WALDO ARREOLA DO CM:PNTRANS [phone] WALDO ARREOLA DO 04/30/192106 interface
--- NOTE | ~2019-04-25 | PR ---
[place], [place] PROGRESS NOTE [id number] #: [id number] ROOM: 504 DOCTOR: ESTRELLITA OHARA MD BIRTHDATE: [birth year] DOS: 04/30/2019 SUBJECTIVE: The patient is resting. Complaint of headaches. Pressures have been elevated in the past. PHYSICAL EXAMINATION: VITAL SIGNS: This morning right now, it is 138/90, pulse of 92, respirations 16, temperature 97.9. LUNGS: Diminished breath sounds. HEART: Regular. ABDOMEN: Obese with evidence of anasarca. ASSESSMENT AND PLAN: 1. Nephrotic syndrome. Awaiting kidney biopsy. 2. Anasarca. We will increase the dose of the Lasix. 3. Ascites. Awaiting paracentesis tomorrow. 4. Benign hypertension. Norvasc has been added. Pressure is slightly better now. ESTRELLITA OHARA MD CM:PNLEFTY [phone] ESTRELLITA OHARA MD 04/30/19 0938 interface
[~2019-04-25 16:11] MED LIST changes: +BENADRYL ALLERG25 M5 PO; +LISINOPRIL20 MG PO; +NATURE'S BLEND F1 MG PO
[2019-04-25 16:13] VITALS: BP 146/88
[2019-04-25 16:28] VITALS: BP 160/80
[2019-04-25 16:39] LABS: BASO % 0.3 % (0.0-1.0); EOS # 0.7 10*3/uL (0.0-0.4); EOS % 8.4 % (1.0-4.0); HEMOGLOBIN 9.5 g/dl (14.0-18.0); LYMPH # 2.4 10*3/uL (1.3-4.4); LYMPH % 28.3 % (27.0-41.0); MEAN CORPUSCULAR HGB 29.1 pg (27.0-31.0); MEAN CORPUSCULAR HGB CONC 32.8 g/dl (33.0-37.0); MONO # 0.4 10*3/uL (0.1-1.0); NEUT % 57.7 % (47.0-73.0); PLATELET COUNT AUTOMATED 325 10*3/uL (130-400); RED BLOOD COUNT 3.26 10*6/uL (4.50-5.90); RED CELL DISTRI WIDTH 12.9 % (0-14.5); WHITE BLOOD COUNT 8.6 10*3/uL (4.8-10.8)
--- NOTE | 2019-04-25 16:48 | NUR ---
PT IS AWARE WE NEED URINE SAMPLE GIVEN URINE CUP UNABLE TO PROVIDE URINE AT THIS TIME
[2019-04-25 16:55] LABS: ALBUMIN 0.6 gm/dl (3.1-4.5); CREATININE 2.8 mg/dL (0.70-1.30); POTASSIUM 4.2 mmol/L (3.5-5.1); TOTAL PROTEIN 4.5 gm/dL (6.4-8.2)
[2019-04-25 17:50] LABS: BILIRUBIN NEGATIVE (NEGATIVE); BLOOD 2+ (NEGATIVE); CLARITY CLOUDY (CLEAR); COLOR YELLOW (YELLOW); GLUCOSE 2+ (NEGATIVE); KETONE NEGATIVE (NEGATIVE); LEUKO ESTERASE NEGATIVE (NEGATIVE); NITRITE NEGATIVE (NEGATIVE); SPECIFIC GRAVITY 1.025 (1.005-1.030); UROBILINOGEN 0.2 E.U./dl (0.2-1.0)
[2019-04-25 18:00] LABS: EPITHELIAL CELLS 0-2
[2019-04-25 19:37] VITALS: BP 158/92
[2019-04-25 20:30] VITALS: BP 149/99
--- NOTE | 2019-04-25 20:30 | NUR ---
Time: 2029 A 23 year old MALE admitted to 5E under services of DR. ROLANDO MILLER,DIDI Grigsby Pt. arrived via stretcher from ER. Chief complaint: RASHIDA ADDISON
[2019-04-26] VITALS: BP 135/88
[2019-04-26 05:55] LABS: ALBUMIN 0.5 gm/dl (3.1-4.5); CREATININE 2.89 mg/dL (0.70-1.30); PHOSPHOROUS 3.8 mg/dL (2.5-4.9); POTASSIUM 3.5 mmol/L (3.5-5.1)
[2019-04-26 06:04] LABS: BASO % 0.2 % (0.0-1.0); EOS # 0.7 10*3/uL (0.0-0.4); EOS % 8.5 % (1.0-4.0); HEMATOCRIT 23.6 % (42.0-52.0); HEMOGLOBIN 7.7 g/dl (14.0-18.0); LYMPH # 3.2 10*3/uL (1.3-4.4); LYMPH % 38.3 % (27.0-41.0); MEAN CELL VOLUME 87.4 fl (80.0-94.0); MEAN CORPUSCULAR HGB 28.5 pg (27.0-31.0); MEAN CORPUSCULAR HGB CONC 32.6 g/dl (33.0-37.0); MEAN PLATELET VOLUME 10.5 fl (9.6-12.3); MONO # 0.5 10*3/uL (0.1-1.0); NEUT # 3.8 10*3/uL (2.3-7.9); NEUT % 46.5 % (47.0-73.0); PLATELET COUNT AUTOMATED 279 10*3/uL (130-400); RED CELL DISTRI WIDTH 12.8 % (0-14.5); WHITE BLOOD COUNT 8.2 10*3/uL (4.8-10.8)
[2019-04-26 06:29] LABS: ACT PARTIAL THROMBO TIME 33.9 SECONDS (20.0-32.1); INTERNATIONAL NORM RATIO 0.9 (2.0-3.5)
[2019-04-26 08:00] VITALS: BP 138/85
--- NOTE | 2019-04-26 08:34 | NUR ---
PT RESTING IN BED. NO DISTRESS NOTED. WILL MONITOR SEE SHIFT ASSESSMENT. WILL MONITOR
[2019-04-26 12:00] VITALS: BP 146/92
--- NOTE | 2019-04-26 15:25 | NUR ---
Chef Instructor in to talk to patient. Patient states lives at home with his father. There are 10 steps in the home. Physician: Dr. Abhi Donohue Pharmacy: [facility] Home health services: none Patient's level of ADLs: INDEPENDENT Patient has working utilities: yes DME: none Follow-up physician's appointment after d/c: he prefers to make his own follow up appt after discharge Does patient want to access PORTAL?: no Discharge plan discussed with patient. He lives at home with his father. He is independent in his ADLs and ambulation. Discussed home care needs and he denies any home needs at this time. When asked about the kidney biopsy after his last admission he states he was not able to get in touch with Dr. Patel's office. He wants to know if he can be discharged today as they are not doing the biopsy today and it is scheduled for Wednesday. Notified Dr. Brito and awaiting response. When medically stable he will be discharged to home. His father will provide transportation on discharge. ALL ARECHIGA
[2019-04-26 16:00] VITALS: BP 148/90
[2019-04-26 16:29] VITALS: BP 145/80
[2019-04-26 20:00] VITALS: BP 152/103
--- NOTE | 2019-04-26 23:54 | NUR ---
24 HR chart check completed.
[2019-04-27] VITALS: BP 147/91
--- NOTE | 2019-04-27 00:57 | NUR ---
Patient resting quietly with no c/o discomfort. Respirations easy and regular. Vital signs stable. No overt distress. CALL LIGHT IN REACH. SIDE RAILS UP X2. BED LOCKED AND IN LOWEST POSITION. JESSE MURILLO
[2019-04-27 08:00] VITALS: BP 140/80
--- NOTE | 2019-04-27 09:00 | NUR ---
Business Analytics Faculty Member in to see patient. No new needs or request at this time. He denies any home needs. When medically stable he will be discharged to home. Per multidisciplinary discharge planning meeting he is scheduled for a renal biopsy tomorrow by IR.
[2019-04-27 13:28] LABS: BASO % 0.3 % (0.0-1.0); EOS # 0.7 10*3/uL (0.0-0.4); EOS % 9.3 % (1.0-4.0); HEMATOCRIT 25.1 % (42.0-52.0); HEMOGLOBIN 8.3 g/dl (14.0-18.0); LYMPH # 2.3 10*3/uL (1.3-4.4); LYMPH % 31.1 % (27.0-41.0); MEAN CELL VOLUME 88.1 fl (80.0-94.0); MEAN CORPUSCULAR HGB 29.1 pg (27.0-31.0); MEAN CORPUSCULAR HGB CONC 33.1 g/dl (33.0-37.0); MEAN PLATELET VOLUME 10.4 fl (9.6-12.3); MONO # 0.4 10*3/uL (0.1-1.0); MONO % 4.9 % (3.0-9.0); PLATELET COUNT AUTOMATED 287 10*3/uL (130-400); RED BLOOD COUNT 2.85 10*6/uL (4.50-5.90); RED CELL DISTRI WIDTH 12.9 % (0-14.5); WHITE BLOOD COUNT 7.3 10*3/uL (4.8-10.8)
[2019-04-27 13:42] LABS: CREATININE 2.81 mg/dL (0.70-1.30); POTASSIUM 3.5 mmol/L (3.5-5.1)
--- NOTE | 2019-04-27 15:53 | NUR ---
Weights recorded x 3 days: 215 lbs, 170 lbs, 116 lbs- requested PA to obtain weight again due to inconsistent documentation. Patient's weight 04/27/19 @ 1530 reported as 216 lbs.
[2019-04-27 16:00] VITALS: BP 158/92
[2019-04-27 20:00] VITALS: BP 147/97
[2019-04-28] VITALS: BP 146/96
--- NOTE | 2019-04-28 01:26 | NUR ---
Patient resting quietly with no c/o discomfort. Respirations easy and regular. Vital signs stable. No overt distress. CALL LIGHT WITHIN REACH. JESSE MURILLO
--- NOTE | 2019-04-28 01:53 | NUR ---
24 HR chart check completed.
[2019-04-28 06:27] LABS: BASO % 0.3 % (0.0-1.0); EOS # 0.8 10*3/uL (0.0-0.4); EOS % 10.6 % (1.0-4.0); HEMATOCRIT 23.3 % (42.0-52.0); HEMOGLOBIN 7.6 g/dl (14.0-18.0); LYMPH # 3.1 10*3/uL (1.3-4.4); LYMPH % 38.8 % (27.0-41.0); MEAN CELL VOLUME 88.6 fl (80.0-94.0); MEAN CORPUSCULAR HGB 28.9 pg (27.0-31.0); MEAN CORPUSCULAR HGB CONC 32.6 g/dl (33.0-37.0); MEAN PLATELET VOLUME 10.5 fl (9.6-12.3); MONO # 0.5 10*3/uL (0.1-1.0); MONO % 5.9 % (3.0-9.0); NEUT # 3.5 10*3/uL (2.3-7.9); PLATELET COUNT AUTOMATED 273 10*3/uL (130-400); RED BLOOD COUNT 2.63 10*6/uL (4.50-5.90); RED CELL DISTRI WIDTH 12.9 % (0-14.5); WHITE BLOOD COUNT 7.9 10*3/uL (4.8-10.8)
[2019-04-28 06:53] LABS: CREATININE 2.79 mg/dL (0.70-1.30); POTASSIUM 3.3 mmol/L (3.5-5.1)
--- NOTE | 2019-04-28 07:06 | NUR ---
DR MARSHALL NOTIFIED OF CALCIUM LEVEL OF 6.9. HE STATED THIS WAS NORMAL FOR THE PATIENT BUT REQUESTED THAT I LET DR ALTAMIRANO KNOW THE PATIENT'S LAB VALUES BEFORE HIS BIOPSY TODAY. WILL NOTIFY DR ALTAMIRANO.
--- NOTE | 2019-04-28 07:06 | NUR ---
CRITICAL LAB RESULT OF CALCIUM 6.9 RECIEVED.
--- NOTE | 2019-04-28 07:10 | NUR ---
NOTIFIED DR ALTAMIRANO'S ANSWERING SERVICE OF NEED TO SPEAK WITH DR ALTAMIRANO. AWAITING RETURN CALL.
--- NOTE | 2019-04-28 07:13 | NUR ---
NOTIFIED DR ALTAMIRANO OF PATIENTS LAB VALUES PER DR MARSHALL'S REQUEST. ORDERS RECIEVED TO ORDER AN ADD ON PHOSPHORUS LEVEL AND VITAMIN D LEVEL.
[2019-04-28 08:00] VITALS: BP 154/108
--- NOTE | 2019-04-28 08:10 | NUR ---
PT RESTING IN BED, ASSISTED TO CART FOR TEST IN RADIOLOGY. NO C/O AT THIS TIME. CALL LIGHT IN REACH. SEE SHIFT ASSESSMENT.
[2019-04-28 08:45] VITALS: BP 154/108
--- NOTE | 2019-04-28 09:00 | NUR ---
PT BACK FROM RADIOLOGY, RESTING INB ED. PT C/O NAUSEA, STATES GETS NAUSIATED AFTER LASIX ALL THE TIME. CALLED ROLANDO ORDER TAKEN AND REVIEWED. TOLERATED PO MEDICATION. CALL LIGHT IN REACH.
--- NOTE | 2019-04-28 09:10 | NUR ---
BROUGHT IV ZOFRAN IN FOR PT HE IS RESTING WITH NO PROBLEMS. PT REFUSED ZOFRAN AT THIS TIME. STATES HE IS OK NOW. CALL LIGHT IN REACH.
--- NOTE | 2019-04-28 11:00 | NUR ---
CALLED DR. MARSHALL FOR TYLENOL PER PT REQUEST FOR ACHING AND PAIN AT BIOPSY SITE. ORDERS TAKEN AND REVIEWED.
--- NOTE | 2019-04-28 11:24 | NUR ---
MEDICATED WITH TYLENOL PO PER PRN ORDER, SEE EMAR. RATES PAIN 4 OR 5 ON PAIN SCALE 0-10. CALL LIGHT IN REACH.
--- NOTE | 2019-04-28 12:00 | NUR ---
DR. MARSHALL ON THE FLOOR MADE AWARE PT BP'S AFTER PROCEDURE HAS BEEN 150'S/LOW 100'S. LAST BP 154/108. HE SAID JUST WATCH, NO NEW ORDERS.
[2019-04-28 16:00] VITALS: BP 137/86
[2019-04-28 20:00] VITALS: BP 151/97
--- NOTE | 2019-04-28 20:00 | NUR ---
AAOX3 RESTING IN BED WATCHING T.V. PT. VOICES NO C/O AT THIS TIME; NO DISTRESS NOTED. CALL LIGHT WITHIN REACH.
--- NOTE | 2019-04-29 01:45 | NUR ---
PT. C/O HAVING DIFFICULTY BREATHING. HOB ELEVATED & PULSE OX 99% ON ROOM AIR. NO DISTRESS NOTED; WILL CONTINUE TO MONITOR. CALL LIGHT WITHIN REACH.
--- NOTE | 2019-04-29 06:15 | NUR ---
REFUSING BLOOD WORK; WENT INTO TALK TO PATIENT PERTAINING TO THE IMPORTANCE OF HAVING THE BLOOD WORK DONE. PT. VERBALIZED UNDERSTANDING & IS WILLING TO HAVE IT DONE. LET SUPERVISOR DRY CELL ASSEMBLY KNOW.
[2019-04-29 06:57] LABS: BASO % 0.1 % (0.0-1.0); EOS # 0.8 10*3/uL (0.0-0.4); HEMATOCRIT 22.3 % (42.0-52.0); HEMOGLOBIN 7.4 g/dl (14.0-18.0); LYMPH # 3.2 10*3/uL (1.3-4.4); LYMPH % 38.4 % (27.0-41.0); MEAN CELL VOLUME 86.1 fl (80.0-94.0); MEAN CORPUSCULAR HGB 28.6 pg (27.0-31.0); MEAN CORPUSCULAR HGB CONC 33.2 g/dl (33.0-37.0); MEAN PLATELET VOLUME 10.3 fl (9.6-12.3); MONO # 0.5 10*3/uL (0.1-1.0); MONO % 6.6 % (3.0-9.0); NEUT # 3.7 10*3/uL (2.3-7.9); NEUT % 44.5 % (47.0-73.0); PLATELET COUNT AUTOMATED 276 10*3/uL (130-400); RED BLOOD COUNT 2.59 10*6/uL (4.50-5.90); RED CELL DISTRI WIDTH 12.9 % (0-14.5); WHITE BLOOD COUNT 8.2 10*3/uL (4.8-10.8)
[2019-04-29 07:24] LABS: CREATININE 2.72 mg/dL (0.70-1.30); POTASSIUM 3.4 mmol/L (3.5-5.1)
[2019-04-29 08:00] VITALS: BP 142/100; BP 152/100
[2019-04-29 12:04] VITALS: BP 142/106
[2019-04-29 16:05] VITALS: BP 144/95
--- NOTE | 2019-04-29 19:00 | NUR ---
ARRIVED ON SHIFT, INTRODUCED TO PATIENT, PATIENT DECLINED BEDSIDE REPORT, WHITE BOARD UPDATED, NO NEEDS VOICED AT THIS TIME.
[2019-04-29 20:00] VITALS: BP 147/103
--- NOTE | 2019-04-29 20:08 | NUR ---
24 HR chart check completed.
[2019-04-30] VITALS: BP 146/100
[2019-04-30 08:00] VITALS: BP 138/90
--- NOTE | 2019-04-30 09:59 | NUR ---
TYLENOL GIVEN FOR C/O HEADACHE. WILL CONT TO MONITOR. CALL LIGHT IN REACH.
--- NOTE | 2019-04-30 10:59 | NUR ---
PT SLEEPING AT THIS TIME. WILL CONT TO MONITOR. CALL LIGHT IN REACH.
[2019-04-30 11:42] VITALS: BP 142/91
[2019-04-30 15:32] VITALS: BP 141/96
--- NOTE | 2019-04-30 19:05 | NUR ---
ARRIVED ON SHIFT, PATIENT HAD VISITOR IN ROOM PREFERED REPORT NOT BE GIVEN AT BEDSIDE, WHITE BOARD UPDATED, NO NEEDS AT THIS TIME. REPORT RECEIVED.
[2019-04-30 20:00] VITALS: BP 145/99
--- NOTE | 2019-04-30 22:01 | NUR ---
24 HR chart check completed.
[2019-05-01] VITALS: BP 152/100
--- NOTE | 2019-05-01 00:28 | NUR ---
Patient sleeping. Respirations relaxed and easy, siderails up X2. [place] on. bed in low position, call light within reach. FLOR KENNEDY
[2019-05-01 06:41] LABS: BASO % 0.2 % (0.0-1.0); EOS # 0.8 10*3/uL (0.0-0.4); HEMATOCRIT 24.4 % (42.0-52.0); LYMPH # 3.1 10*3/uL (1.3-4.4); LYMPH % 36.6 % (27.0-41.0); MEAN CELL VOLUME 87.8 fl (80.0-94.0); MEAN CORPUSCULAR HGB 28.8 pg (27.0-31.0); MEAN CORPUSCULAR HGB CONC 32.8 g/dl (33.0-37.0); MEAN PLATELET VOLUME 10.5 fl (9.6-12.3); MONO # 0.5 10*3/uL (0.1-1.0); MONO % 6.4 % (3.0-9.0); NEUT # 3.9 10*3/uL (2.3-7.9); NEUT % 46.3 % (47.0-73.0); PLATELET COUNT AUTOMATED 291 10*3/uL (130-400); RED BLOOD COUNT 2.78 10*6/uL (4.50-5.90); RED CELL DISTRI WIDTH 12.8 % (0-14.5); WHITE BLOOD COUNT 8.3 10*3/uL (4.8-10.8)
[2019-05-01 06:49] LABS: CREATININE 2.48 mg/dL (0.70-1.30); POTASSIUM 3.4 mmol/L (3.5-5.1)
[2019-05-01 08:00] VITALS: BP 133/89
--- NOTE | 2019-05-01 08:00 | NUR ---
PT RESTING IN BED/ NO DISTRESS NOTED. WILL MONITOR
--- NOTE | 2019-05-01 10:30 | NUR ---
Tack Puller Machine in to see patient. He is currently not in his room. Will follow up at a later time.
--- NOTE | 2019-05-01 13:00 | NUR ---
DR ALTAMIRANO HERE AND STATES PT OK FOR DC
[2019-05-01] MEDS ORDERED: LASIX80 MG PO (14:00)
[2019-05-01] MEDS ORDERED: PRINIVIL10 MG PO (14:00)
[2019-05-01] MEDS ORDERED: NORVASC5 MG PO (14:00)
[2019-05-01] MEDS ORDERED: K-TAB20 MEQ PO (14:00)
[2019-05-01] MEDS ORDERED: VITAMIN D32000 UNI1 PO (14:00)
[2019-05-01] MEDS ORDERED: AMLODIPINE BESYL5 MG PO (15:45)
[2019-05-01] MEDS ORDERED: KLOR-CON M2020 ME1 PO (15:45)
[2019-05-01] MEDS ORDERED: FUROSEMIDE40 MG PO (15:45)
[2019-05-01] MEDS ORDERED: Zestril,Prinivi40 MG PO (15:45)
[2019-05-01 16:00] VITALS: BP 136/90
--- NOTE | 2019-05-01 17:07 | NUR ---
Discharge instructions reviewed with patient/family. Patient receptive and verbalizes understanding. Follow-up care arranged. Written instructions given to patient/family. ALYCE STEVENS
== END 2019-05-01 17:07 | disposition home or self-care (01) | DRG 682 ==
LOC: ED 16:11 → EDHOLD 19:17 → 5E 19:17
PROVIDERS: Emergency Medicine; Internal Medicine; Internal Medicine Nephrology; ADMIT Internal Medicine
PROC: 0TB33ZX Excision of Right Kidney Pelvis, Percutaneous Approach, Diagnostic (ICD-10-PCS; principal; 2019-04-28)
PROC: 0W9G3ZZ Drainage of Peritoneal Cavity, Percutaneous Approach (ICD-10-PCS; 2019-05-01)
DX: N17.9 Acute kidney failure, unspecified (principal); E43 Unspecified severe protein-calorie malnutrition; R18.8 Other ascites; J90 Pleural effusion, not elsewhere classified; E87.6 Hypokalemia; I10 Essential (primary) hypertension; E77.8 Other disorders of glycoprotein metabolism; N00.9 Acute nephritic syndrome with unspecified morphologic changes; D64.9 Anemia, unspecified; E55.9 Vitamin D deficiency, unspecified; Z83.3 Family history of diabetes mellitus; Z68.28 Body mass index [BMI] 28.0-28.9, adult

== ENCOUNTER 2019-08-09 11:43 | Emergency (ER) | payer SELFPAY ==
[~2019-08-09] VITALS: Ht 185.4 cm; Wt 90.7 kg
[~2019-08-09 11:43] MED LIST changes: +AMLODIPINE BESYL5 MG PO; +FUROSEMIDE40 MG PO; +K-TAB20 MEQ PO; +KLOR-CON M2020 ME1 PO; +LASIX80 MG PO; +NORVASC5 MG PO; +PRINIVIL10 MG PO; +VITAMIN D32000 UNI1 PO; +Zestril,Prinivi40 MG PO
[2019-08-09 12:28] LABS: BASO # 0.1 10*3/uL (0.0-0.1); BASO % 0.3 % (0.0-1.0); EOS # 1.2 10*3/uL (0.0-0.4); EOS % 7.9 % (1.0-4.0); HEMATOCRIT 33.8 % (42.0-52.0); HEMOGLOBIN 11.3 g/dl (14.0-18.0); LYMPH # 4.3 10*3/uL (1.3-4.4); LYMPH % 28.7 % (27.0-41.0); MEAN CELL VOLUME 87.6 fl (80.0-94.0); MEAN CORPUSCULAR HGB 29.3 pg (27.0-31.0); MEAN CORPUSCULAR HGB CONC 33.4 g/dl (33.0-37.0); MEAN PLATELET VOLUME 9.9 fl (9.6-12.3); MONO # 0.8 10*3/uL (0.1-1.0); NEUT # 8.5 10*3/uL (2.3-7.9); NEUT % 56.6 % (47.0-73.0); PLATELET COUNT AUTOMATED 368 10*3/uL (130-400); RED BLOOD COUNT 3.86 10*6/uL (4.50-5.90); RED CELL DISTRI WIDTH 12.4 % (0-14.5)
[2019-08-09 12:48] LABS: ALBUMIN 0.7 gm/dl (3.1-4.5); CREATININE 2.23 mg/dL (0.70-1.30); POTASSIUM 3.3 mmol/L (3.5-5.1); TOTAL PROTEIN 3.9 gm/dL (6.4-8.2)
[2019-08-09 13:30] LABS: BILIRUBIN NEGATIVE (NEGATIVE); CLARITY CLOUDY (CLEAR); COLOR YELLOW (YELLOW); GLUCOSE 1+ (NEGATIVE); KETONE NEGATIVE (NEGATIVE); SPECIFIC GRAVITY 1.015 (1.005-1.030)
[2019-08-09 13:31] LABS: BLOOD 2+ (NEGATIVE); LEUKO ESTERASE NEGATIVE (NEGATIVE); NITRITE NEGATIVE (NEGATIVE); UROBILINOGEN 0.2 E.U./dl (0.2-1.0)
[2019-08-09 13:32] LABS: BACTERIA 2+
[2019-08-09 13:33] LABS: RBC 16-20 rbc/hpf (0-2); WAXY CAST 0-2
[2019-08-09] MEDS ORDERED: NORVASC5 MG PO (14:04)
== END 2019-08-09 14:48 | disposition home or self-care (01) ==
LOC: ED 11:43
PROVIDERS: Nurse Practitioner Family
DX: J02.8 Acute pharyngitis due to other specified organisms (principal); Z79.899 Other long term (current) drug therapy

== ENCOUNTER 2019-08-24 16:37 | Emergency (ER) | payer SELFPAY ==
[~2019-08-24] VITALS: Ht 182.8 cm; Wt 88.5 kg
[2019-08-24] MEDS ORDERED: POTASSIUM CHLO20 ME3 PO (17:08)
== END 2019-08-24 17:27 | disposition home or self-care (01) ==
LOC: ED 16:37
DX: N28.9 Disorder of kidney and ureter, unspecified (principal); Z76.0 Encounter for issue of repeat prescription; R25.2 Cramp and spasm; Z79.899 Other long term (current) drug therapy